=== PATIENT | female | born 1995 | race Native Hawaiian/Other Pacific Islander ===

== ENCOUNTER 2018-07-14 13:53 | Emergency (ER) | payer BC ==
[~2018-07-14] VITALS: Ht 160 cm; Wt 99.8 kg
[2018-07-14 13:57] VITALS: TEMP 98.1
[2018-07-14 15:52] VITALS: BP 142/76
== END 2018-07-14 15:43 | disposition home or self-care (01) ==
LOC: ED 13:53
PROC: 2W3SXYZ Immobilization of Right Foot using Other Device (ICD-10-PCS; principal; 2018-07-14)
DX: M79.671 Pain in right foot (principal)
CPT/HCPCS: 99282; J1885

== ENCOUNTER 2022-05-31 16:25 | Emergency (ER) | payer OTHER ==
[~2022-05-31] VITALS: Ht 160 cm; Wt 99.8 kg
[2022-05-31 16:28] VITALS: TEMP 98.2
[2022-05-31 17:18] VITALS: BP 124/79
== END 2022-05-31 18:30 | disposition home or self-care (01) ==
LOC: ED 16:25
DX: M94.0 Chondrocostal junction syndrome [Tietze] (principal); R07.89 Other chest pain; E66.8 Other obesity
CPT/HCPCS: 93005; 99282